=== PATIENT | male | born 1935 | race Caucasian/White ===

== ENCOUNTER 2016-08-13 14:22 | Inpatient (IN) | payer OTHER, MEDICARE ==
[~2016-08-13] VITALS: Ht 175.3 cm; Wt 91.6 kg
[~2016-08-13 14:22] MED LIST: ATOR40TA49 PO; COEN400C PO; HYDR-3129 PO; LISI-586 PO; METO25 PO; NAPR550 PO; PLAV75TA PO; PRIN10TA PO; TAB-TAB PO
[2016-08-13] MEDS ORDERED: SODIUM CHLORIDE 0.9% FLUSH 10 ML FLUSH IV FLUSH PRN ×3 (15:00→18:45)
[2016-08-13 15:08] VITALS: BP 166/76; PULSE 81; RESP 18; TEMP 98.6; O2SAT 96
--- NOTE | 2016-08-13 15:31 | PD ---
HPI Chief Complaint: Hip Injury Time Seen by Provider: 14:59 Travel History International Travel<30 days: No Contact w/Intl Traveler<30days: No Traveled to known affect area: No History of Present Illness HPI Patient is a 80-year-old male who presents to emergency room with complaints of left-sided hip pain. Patient reports that he was at home, reports that he tripped over his own feet and landed on his left hip. Patient reports that he was not able to ambulate after his fall today. Patient reports that he does have history of chronic back pain, take his dose of pain medications prior to coming to the emergency room. Patient reports that he only has pain with movement, reports that he is comfortable if he is still PFS Past Medical History Hx Anticoagulant Therapy: Yes Blood Disorders: No Cancer: Yes (TESTICULAR) Cardiovascular Problems: No Chemotherapy: No Cerebrovascular Accident: No Diabetes: No Diminished Hearing: No Endocrine: No Gastrointestinal Disorders: Yes (HX GERD) Genitourinary: No Hepatitis: No Hiatal Hernia: No Hypertension: Yes Immune Disorder: No Musculoskeletal: Yes (ARTHRITIS, CHRONIC BACK PAIN ) Neurologic: Yes (RIGHT DROP FOOT) Psychiatric: No Reproductive: No Respiratory: No Thyroid Disease: No Tetanus Vaccination: > 5 Years ?: Not Past Surgical History Abdominal Surgery: Yes (CHOLECYSTECTOMY, GALLBLADDER REMOVAL) AICD: No Cardiac Surgery: Yes (LEFT CAROTID STENT ) Cholecystectomy: Yes Coronary Artery Bypass Graft: Yes (cabg x 3) Coronary Stent: Yes Eye Surgery: Yes (KIMBERLI CATARACT SX) Genitourinary Surgery: Yes (ORCHIECTOMY) Joint Replacement: No Pacemaker: No Other Surgery: Yes (BACK, CHOLECYSTECTOMY, BL LASIX) Social History Alcohol Use: Yes (COUPLE BEERS A DAY) Tobacco Use: No (QUIT CIGARETTES 1988) Substance Use: Yes (MEDICAL MARIJUANA) Allergies-Medications (Allergen,Severity, Reaction): Coded Allergies: Codeine (Verified Allergy, Severe, Hives, 08/13/16) Penicillin (Verified Allergy, Severe, Hives, 08/13/16) Reported Meds & Prescriptions Reported Meds & Active Scripts Active Reported Calcium (Calcium Carbonate) 600 Mg Tab 600 Mg PO DAILY Centrum Adults (Multiple Vitamins W/ Minerals) 1 Tab 500 Mg PO DAILY Co-Q 10 [place]-3 Fish Oil (Coenzyme I57-Rkbp Oil-Vitamin) 1 Cap 400 Mg PO DAILY Diazepam 5 Mg Tab 5 Mg PO Q8HR PRN Morphine ER (Morphine Sulfate) 15 Mg Tab 15 Mg PO Q8HR Morphine ER (Morphine Sulfate) 15 Mg Tab 15 Mg PO Q8HR PRN Citalopram (Citalopram Hydrobromide) 10 Mg Tab 10 Mg PO DAILY Aspirin 325 Mg Tab 325 Mg PO DAILY Senna Laxative (Sennosides) 8.6 Mg Tab 1-2 Tab BID PRN Atorvastatin (Atorvastatin Calcium) 40 Mg Tab 40 Mg PO HS Review of Systems General / Constitutional: No: Fever Eyes: No: Visual changes HENT: No: Headaches Cardiovascular: No: Chest Pain or Discomfort Respiratory: No: Shortness of Breath Gastrointestinal: No: Abdominal Pain Genitourinary: No: Dysuria Musculoskeletal: Positive: Limited ROM (left hip), Pain (left hip) Skin: No Rash Neurologic: No: Weakness Psychiatric: No: Depression Endocrine: No: Polydipsia Hematologic/Lymphatic: No: Easy Bruising Physical Exam Narrative GENERAL: Mild distress SKIN: Focused skin assessment warm/dry. HEAD: Atraumatic. Normocephalic. EYES: Pupils equal and round. No scleral icterus. No injection or drainage. ENT: No nasal bleeding or discharge. Mucous membranes pink and moist. NECK: Trachea midline. No JVD. CARDIOVASCULAR: Regular rate and rhythm. No murmur appreciated. RESPIRATORY: No accessory muscle use. Clear to auscultation. Breath sounds equal bilaterally. GASTROINTESTINAL: Abdomen soft, non-tender, nondistended. Hepatic and splenic margins not palpable. MUSCULOSKELETAL: lle: patient with pain with rom to left hip - no open fx, no pain with rom to left knee/ankle, neurovascularly intact RLE: normal exam NEUROLOGICAL: Awake and alert. No obvious cranial nerve deficits. Motor grossly within normal limits. Normal speech. PSYCHIATRIC: Appropriate mood and affect; insight and judgment normal. Data Data Last Documented VS Vital Signs Date Time Temp Pulse Resp B/P Pulse Ox O2 Delivery O2 Flow Rate FiO2 08/13/16 15:08 98.6 81 18 166/76 96 Orders Basic Metabolic Panel (Bmp) (08/13/16 15:00) Complete Blood Count With Diff (08/13/16 15:00) Prothrombin Time / Inr (Pt) (08/13/16 15:00) Act Partial Throm Time (Ptt) (08/13/16 15:00) Iv Access Insert/Monitor (08/13/16 15:00) Sodium Chloride 0.9% Flush (Ns Flush) (08/13/16 15:00) Femur (Ap & Lat/2vws) (08/13/16 ) Hip, Uni(Ap&Lat) W Ap Pelvis (08/13/16 ) Admit Order (Ed Use Only) (08/13/16 17:16) Consult Orthopedic (08/13/16 ) Labs Laboratory Tests Test 08/13/16 15:19 White Blood Count 8.2 TH/MM3 Red Blood Count 3.69 MIL/MM3 Hemoglobin 11.0 GM/DL Hematocrit 34.2 % Mean Corpuscular Volume 92.6 FL Mean Corpuscular Hemoglobin 29.9 PG Mean Corpuscular Hemoglobin 32.3 % Concent Red Cell Distribution Width 15.2 % Platelet Count 116 TH/MM3 Mean Platelet Volume 9.1 FL Neutrophils (%) (Auto) 72.1 % Lymphocytes (%) (Auto) 14.8 % Monocytes (%) (Auto) 7.5 % Eosinophils (%) (Auto) 5.2 % Basophils (%) (Auto) 0.4 % Neutrophils # (Auto) 5.9 TH/MM3 Lymphocytes # (Auto) 1.2 TH/MM3 Monocytes # (Auto) 0.6 TH/MM3 Eosinophils # (Auto) 0.4 TH/MM3 Basophils # (Auto) 0.0 TH/MM3 CBC Comment DIFF FINAL Differential Comment Prothrombin Time 11.6 SEC Prothromb Time International 1.0 RATIO Ratio Activated Partial 27.9 SEC Thromboplast Time Sodium Level 139 MEQ/L Potassium Level 4.2 MEQ/L Chloride Level 105 MEQ/L Carbon Dioxide Level 28.6 MEQ/L Anion Gap 5 MEQ/L Blood Urea Nitrogen 21 MG/DL Creatinine 1.25 MG/DL Estimat Glomerular Filtration 56 ML/MIN Rate Random Glucose 101 MG/DL Calcium Level 8.8 MG/DL MDM Medical Decision Making Medical Screen Exam Complete: Yes Emergency Medical Condition: Yes Interpretation(s) Vital Signs Date Time Temp Pulse Resp B/P Pulse Ox O2 Delivery O2 Flow Rate FiO2 08/13/16 15:08 98.6 81 18 166/76 96 Differential Diagnosis Hip fracture, hip contusion Narrative Course 80-year-old male who presents to emergency room with complaints of left-sided hip pain after he fell from tripping on his feet today. Patient does take a baby ASA daily, denies trauma to head/neck. Denies loc. Patient denies cp/sob. No abdominal pain. Patient overall comfortable on exam. Plan to obtain basic labs and xrays of his left hip. CBC & BMP Diagram 08/13/16 15:19 Last Impressions Hip and Pelvis X-Ray 08/13/16 0000 Signed Impressions: Service Date/Time: August 15:49 - CONCLUSION: Impacted left femoral neck fracture. Cecil Rosa MD Femur X-Ray 08/13/16 0000 Signed Impressions: Service Date/Time: , August 13, 2016 15:50 - CONCLUSION: Impacted left femoral neck fracture. Cecil Rosa MD patient with impacted femoral neck fracture, call made to [facility] for admission, call made to Dr. Dougherty with ortho I did talk to patient about his hip fracture, patient's thought bedside, reports that he is on hospice and has been on hospice for the past 6 months for chronic pain. Patient as well as his like to talk to the orthopedic surgeon about options and is not ready to make a commitment for surgery. Plan to admit to medicine service with orthopedic consult case reviewed with dr. reina who accepts pt to service case reviewed with dr. rahman DIRECTOR OF BLOOD, will see patient in consult patient now agreeable to having surgery for hip replacement Diagnosis Primary Impression: Femur fracture, left Qualified Code: S72.042A - Closed displaced basicervical fracture of left femur, initial encounter Ruled Out: Carotid artery occlusion without infarction Admitting Information Admitting Physician Requests: Admit Nelida Verdugo DO Aug 13, 2016 15:31 Nelida Verdugo DO Aug 13, 2016 15:31
[2016-08-13] MEDS ORDERED: MORP1TAB24 PO (15:33)
[2016-08-13] MEDS ORDERED: ASPI325T PO (15:33)
[2016-08-13] MEDS ORDERED: CO-QCAP PO (15:33)
[2016-08-13] MEDS ORDERED: DIAZ5TAB PO (15:33)
[2016-08-13] MEDS ORDERED: ATOR40TA16 PO (15:33)
[2016-08-13] MEDS ORDERED: SENN8.6T25 (15:33)
[2016-08-13] MEDS ORDERED: CITA10TA4 PO (15:33)
[2016-08-13] MEDS ORDERED: CENTTAB8 PO (15:33)
[2016-08-13] MEDS ORDERED: CALC600T25 PO (15:33)
[2016-08-13 16:01] LABS: AUTOMATED NEUTROPHIL # 5.9 TH/MM3 (1.8-7.7); BASOPHIL % 0.4 % (0.0-2.0); EOSINOPHIL # 0.4 TH/MM3 (0-0.4); EOSINOPHIL % 5.2 % (0.0-4.0); HEMATOCRIT 34.2 % (39.0-51.0); HEMO FLAGS DIFF FINAL; LYMPH % 14.8 % (9.0-44.0); LYMPHOCYTE # 1.2 TH/MM3 (1.0-4.8); MEAN CELL VOLUME 92.6 FL (80.0-100.0); MEAN CORPUSCULAR HEMOGLOBIN 29.9 PG (27.0-34.0); MEAN CORPUSCULAR HGB CONC 32.3 % (32.0-36.0); MONO % 7.5 % (0.0-8.0); NEUT % 72.1 % (16.0-70.0); PLATELET COUNT 116 TH/MM3 (150-450); RED BLOOD COUNT 3.69 MIL/MM3 (4.50-5.90); RED CELL DISTRIBUTION WIDTH 15.2 % (11.6-17.2); WHITE BLOOD COUNT 8.2 TH/MM3 (4.0-11.0)
[2016-08-13 16:13] LABS: APTT (PATIENT) 27.9 SEC (24.3-30.1); PROTHROMBIN TIME - PATIENT 11.6 SEC (9.8-11.6)
[2016-08-13 16:29] LABS: BICARBONATE 28.6 MEQ/L (21.0-32.0); POTASSIUM 4.2 MEQ/L (3.5-5.1)
--- NOTE | 2016-08-13 16:42 | RADRPT ---
EXAM DATE/TIME: 08/13/2016 15:49 [facility] COMPARISON: No previous studies available for comparison. INDICATIONS : Left hip pain after falling today. MEDICAL HISTORY : None. SURGICAL HISTORY : None. ENCOUNTER: Initial ACUITY: 1 day PAIN SCORE: 7/10 LOCATION: Left hip. FINDINGS: 3 views left hip and pelvis. Impacted left femoral neck fracture. Hip joint alignment within normal l imits. Aortoiliac stent graft. CONCLUSION: Impacted left femoral neck fracture. Cecil Rosa MD on August 13, 2016 at 16:39 Board Certified Radiologist. This report was verified electronically.
--- NOTE | 2016-08-13 16:43 | RADRPT ---
EXAM DATE/TIME: 08/13/2016 15:50 [facility] COMPARISON: No previous studies available for comparison. INDICATIONS : Left leg pain after falling today. MEDICAL HISTORY : None. SURGICAL HISTORY : None. ENCOUNTER: Initial ACUITY: 1 day PAIN SCORE: 7/10 LOCATION: Left femur. FINDINGS: 5 views left femur. Impacted left femoral neck fracture. Hip joint alignment and knee joint alignment within normal limits. CONCLUSION: Impacted left femoral neck fracture. Cecil Rosa MD on August 13, 2016 at 16:41 Board Certified Radiologist. This report was verified electronically.
[2016-08-13] MEDS ORDERED: MORPHINE SULFATE 8 MG/ML INJ IV PUSH ONE (17:45)
[2016-08-13 18:27] VITALS: BP 140/61; PULSE 100; RESP 16; O2SAT 96
--- NOTE | 2016-08-13 18:43 | HHI.HP ---
HPI [facility] Primary Care Physician Unknown Admission Diagnosis left femoral neck surgery Diagnoses: (1) Femur fracture, left Chief Complaint: Left hip pain post fall Travel History International Travel<30 Days: No Contact w/Intl Traveler <30 Da: No Traveled to Known Affected Are: No History of Present Illness Mr. Tavarez is a 80-year-old male patient with a known history of CAD with CABG x 3 stents in 2016, left carotid stent placement, AAA, GERD and arthritis who is presently on hospice at home x 6 months who presented to the ED post fall with left hip pain. Patient seen and examined, significant other at bedside. He states that while using his rolling walker at home he turned the corner and tripped over his own feet. Patient denies any LOC, hitting his head, dizziness or headache. Denies any associated numbness, tingling, or decreased sensation to left lower extremity. Denies any recent fever, chills, cough, shortness of breath, chest pain, palpitations, abdominal pain, n/v, or dysuria. At this time patient has decided if surgery is indicated he wishes to proceed with surgery. Awaiting orthopedic consult and recommendations. Review of Systems Musculoskeletal: COMPLAINS OF: Joint pain (left hip) Except as stated in HPI: all other systems reviewed are Neg Past Family Social History Past Medical History On Hospice x 6 months Abdominal aortic aneurysm Right foot drop Testicular cancer with orchectomy in 2012. Coronary artery disease post CABG x 3 stents in 2016. Arthritis GERD Chronic hip pain Past Surgical History CABG x 3 stents in 2016 off blood thinner x 4 months. Takes aspirin daily. Orchiectomy 2013 Bilateral cataract surgery Left carotid stent Cholecystectomy Back surgery 1987 Reported Medications Reported Calcium (Calcium Carbonate) 600 Mg Tab 600 Mg PO DAILY Centrum Adults (Multiple Vitamins W/ Minerals) 1 Tab 500 Mg PO DAILY Co-Q 10 [place]-3 Fish Oil (Coenzyme D64-[place] Oil-Vitamin) 1 Cap 400 Mg PO DAILY Diazepam 5 Mg Tab 5 Mg PO Q8HR PRN Morphine ER (Morphine Sulfate) 15 Mg Tab 15 Mg PO Q8HR Morphine ER (Morphine Sulfate) 15 Mg Tab 15 Mg PO Q8HR PRN Citalopram (Citalopram Hydrobromide) 10 Mg Tab 10 Mg PO DAILY Aspirin 325 Mg Tab 325 Mg PO DAILY Senna Laxative (Sennosides) 8.6 Mg Tab 1-2 Tab BID PRN Atorvastatin (Atorvastatin Calcium) 40 Mg Tab 40 Mg PO HS Allergies: Coded Allergies: Codeine (Verified Allergy, Severe, Hives, 08/13/16) Penicillin (Verified Allergy, Severe, Hives, 08/13/16) Active Ordered Medications Current Medications Medications (Trade) Dose Ordered Sig/Paola Route Start Time Stop Time Status Last Admin (NS Flush) 2 ml UNSCH PRN IV FLUSH 08/13/16 15:00 (NS Flush) 2 ml UNSCH PRN IV FLUSH 08/13/16 17:30 (NS Flush) 2 ml BID IV FLUSH 08/13/16 21:00 Family History Denies any significant family medical history. Social History Patient lives at home on Hospice x 6 months now with significant other. Does admit to tobacco history since he was 13 years old, smoked 1 ppd until 1987. Does admit to drinking 2 beers per day. Does admit to occasional smoking marijuana for medical purposes. Physical Exam Vital Signs Vital Signs Date Time Temp Pulse Resp B/P Pulse Ox O2 Delivery O2 Flow Rate FiO2 08/13/16 15:08 98.6 81 18 166/76 96 Physical Exam GENERAL: Well-nourished, well-developed patient, in no apparent distress lying comfortably in bed. SKIN: No rashes, ecchymoses or lesions. Warm and dry. HEENT: Atraumatic. Normocephalic. Pupils equal round and reactive. Extraocular motions intact. No scleral icterus. No injection or drainage. Nose without bleeding. Airway patent. NECK: Trachea midline. Supple. CARDIOVASCULAR: Regular rate and rhythm. Holosystolic murmur noted. RESPIRATORY: Clear to auscultation. Breath sounds equal bilaterally. No wheezes , rales, or rhonchi. GASTROINTESTINAL: Abdomen soft, non-tender, nondistended. No guarding. MUSCULOSKELETAL: Extremities without clubbing, cyanosis, or edema. No joint tenderness, effusion, or edema noted. Pain with ROM to left lower extremity. NEUROLOGICAL: Awake and alert. Cranial nerves II through XII intact. Motor and sensory grossly within normal limits. Five out of 5 muscle strength in all muscle groups. Normal speech. Denies any numbness or tingling. Sensation equal in bilateral lower extremities, intact. Laboratory Laboratory Tests Test 08/13/16 15:19 White Blood Count 8.2 Red Blood Count 3.69 Hemoglobin 11.0 Hematocrit 34.2 Mean Corpuscular Volume 92.6 Mean Corpuscular Hemoglobin 29.9 Mean Corpuscular Hemoglobin 32.3 Concent Red Cell Distribution Width 15.2 Platelet Count 116 Mean Platelet Volume 9.1 Neutrophils (%) (Auto) 72.1 Lymphocytes (%) (Auto) 14.8 Monocytes (%) (Auto) 7.5 Eosinophils (%) (Auto) 5.2 Basophils (%) (Auto) 0.4 Neutrophils # (Auto) 5.9 Lymphocytes # (Auto) 1.2 Monocytes # (Auto) 0.6 Eosinophils # (Auto) 0.4 Basophils # (Auto) 0.0 CBC Comment DIFF FINAL Differential Comment Prothrombin Time 11.6 Prothromb Time International 1.0 Ratio Activated Partial 27.9 Thromboplast Time Sodium Level 139 Potassium Level 4.2 Chloride Level 105 Carbon Dioxide Level 28.6 Anion Gap 5 Blood Urea Nitrogen 21 Creatinine 1.25 Estimat Glomerular Filtration 56 Rate Random Glucose 101 Calcium Level 8.8 Result Diagram: 08/13/16 1519 08/13/16 1519 Imaging Last Impressions Hip and Pelvis X-Ray 08/13/16 0000 Signed Impressions: Service Date/Time: August 15:49 - CONCLUSION: Impacted left femoral neck fracture. Cecil Rosa MD Femur X-Ray 08/13/16 0000 Signed Impressions: Service Date/Time: August 15:50 - CONCLUSION: Impacted left femoral neck fracture. Cecil Rosa MD Assessment and Plan Assessment and Plan Mr. Tavarez is a 80-year-old male patient with a known history of CAD with CABG x 3 stents in 2016, left carotid stent placement, AAA, GERD and arthritis who is presently on hospice at home x 6 months presented to the ED post fall with left hip pain. Impacted left femoral neck fracture, acute - Hip/pelvis, and femur x-ray reviewed showing impacted left femoral neck fracture. - Orthopedic surgeons consulted, appreciate input. - Patient is Hospice. If indicated, patient has decided to go ahead with surgery. - Keep NPO until seen by orthopedic surgeon. - Control pain. Morphine 4 mg IV Q3hr PRN breakthrough pain. [place] 10/325 mg PO PRN per pain scale. Hypertension suspect secondary to left hip pain - Monitor. Will add PRN clonidine 0.1 mg PO Q6hr PRN systolic > 180. Coronary artery disease, chronic - On daily aspirin 325 mg PO daily. Last taken this am. Hold daily aspirin for now with possibly surgery in am. - Will obtain EKG. Follow. Anemia of chronic disease: Hemoglobin 11.0/Hematocrit 34.2 on presentation. Recheck CBC in am. Other chronic medical problems include arthritis and GERD and are stable at this time. Resume home medications as indicated. DVT Prophylaxis: SCDs. D/w patient, significant other, and Dr. Neal. Attestation Patient seen and examined with NATE Borrero. The exam, history, and the medical decision-making described in the above note were completed with the assistance of the dictating practitioner. I attest that I had a [id number] encounter with the patient on the same day, and personally performed all of the history, exam, or medical decision making. Discussed case with her thoroughly after seeing the patient, reviewed and agreed with the plan. Please see addendum in History, Physical examination. See below for any errata/additional input: This is a 80 year-old male with history of coronary artery disease, GERD, AAA, on hospice presented to the hospital with left hip pain after a fall. Patient sustained a left hip fracture. Presently, pain is controlled, no nausea, vomiting, dizziness or lightheadedness. No chest pain or shortness of breath. Not in distress Regular rate and rhythm, holosystolic musical murmur. /. Clear breath sounds Left lower extremity range of motion decreased with tenderness to palpation of the left hip. Alert awake and oriented 3 -Check EKG, a normal limits, cleared for surgery. Orthopedics consulted, for surgery tomorrow, nothing by mouth after midnight. Continue home medications, recheck CBC and BMP in the morning. Pain medications both oral and intravenous , bowel regimen. Clonidine as needed for hypertension, most likely secondary to pain. Physician Certification 2 Midnight Certification Type: Admission for Inpatient Services Order for Inpatient Services The services are ordered in accordance with Medicare regulations or non- Medicare payer requirements, as applicable. In the case of services not specified as inpatient-only, they are appropriately provided as inpatient services in accordance with the 2-midnight benchmark. Estimated LOS (days): 2 days is the estimated time the patient will need to remain in the hospital, assuming treatment plan goals are met and no additional complications. Post-Hospital Plan: Hospice Problem Qualifiers (1) Femur fracture, left: Qualified Code: S72.042A - Closed displaced basicervical fracture of left femur , initial encounter Tabby Duval Aug 13, 2016 18:43 Darline Neal MD Aug 13, 2016 18:52
[2016-08-13] MEDS ORDERED: ACETAMINOPHEN 325 MG TAB PO PRN (18:45)
[2016-08-13] MEDS ORDERED: NALOXONE HCL 0.4 MG/ML AMP IV PRN ×2 (18:45)
[2016-08-13] MEDS ORDERED: MORPHINE SULFATE 4 MG/ML INJ IV PRN (18:45)
[2016-08-13] MEDS ORDERED: ACETAMINOPHEN/HYDROcodone 325 MG/5 MG TAB PO PRN (18:45)
[2016-08-13] MEDS ORDERED: cloNIDine HCL 0.1 MG TAB PO PRN (18:45)
[2016-08-13] MEDS ORDERED: ONDANSETRON HCL 4 MG/2 ML VIAL IVP PRN (18:45)
[2016-08-13 19:58] VITALS: BP 121/69; PULSE 102; RESP 18; TEMP 97.3; O2SAT 92
[2016-08-13 21:00] VITALS: PULSE 108
[2016-08-13] MEDS: SODIUM CHLORIDE 0.9% FLUSH 10 ML FLUSH IV FLUSH SCH ×2 (21:00→21:24)
[2016-08-13 23:30] VITALS: PULSE 102
[2016-08-13 23:51] VITALS: BP 132/70; PULSE 107; RESP 17; TEMP 98; O2SAT 92
[2016-08-14] VITALS (7 sets, daily range): BP systolic 101–142; BP diastolic 61–75; PULSE 74–93; RESP 16–18; TEMP 95.8–98.4; O2SAT 93–98
[2016-08-14] MEDS: ACETAMINOPHEN/HYDROcodone 325 MG/10 MG TAB PO PRN ×3 (03:05→07:56)
[2016-08-14] MEDS ORDERED: SODIUM CHLORID 0.9% 500 ML IV PRN (04:15)
[2016-08-14] MEDS ORDERED: CHLORHEXIDINE GLUCONATE 2 % 1 PACK (2 CLOTHS) TOPICAL PRN (04:15)
[2016-08-14] MEDS ORDERED: POVIDONE IODINE 5% (ANTISEPSIS KIT) 4 APPLICATIONS EACH NARE PRN (04:15)
[2016-08-14] MEDS ORDERED: LACTATED RINGER'S 1000 ML IV PRN (04:15)
[2016-08-14 07:08] LABS: AUTOMATED NEUTROPHIL # 5.9 TH/MM3 (1.8-7.7); BASOPHIL % 0.4 % (0.0-2.0); EOSINOPHIL # 0.5 TH/MM3 (0-0.4); EOSINOPHIL % 5.8 % (0.0-4.0); HEMATOCRIT 35.6 % (39.0-51.0); HEMO FLAGS DIFF FINAL; LYMPH % 15.5 % (9.0-44.0); LYMPHOCYTE # 1.3 TH/MM3 (1.0-4.8); MEAN CELL VOLUME 91.1 FL (80.0-100.0); MEAN CORPUSCULAR HEMOGLOBIN 31.2 PG (27.0-34.0); MEAN CORPUSCULAR HGB CONC 34.3 % (32.0-36.0); MONO % 8.4 % (0.0-8.0); NEUT % 69.9 % (16.0-70.0); PLATELET COUNT 105 TH/MM3 (150-450); RED BLOOD COUNT 3.91 MIL/MM3 (4.50-5.90); RED CELL DISTRIBUTION WIDTH 15.1 % (11.6-17.2); WHITE BLOOD COUNT 8.5 TH/MM3 (4.0-11.0)
--- NOTE | 2016-08-14 07:21 | PD.ORT.PN ---
Subjective Subjective Remarks s/p fall at home left hip pain. no other complaints. Objective Vitals Vital Signs Date Time Temp Pulse Resp B/P Pulse Ox O2 Delivery O2 Flow Rate FiO2 08/14/16 03:27 96.4 93 18 142/75 93 08/13/16 23:51 98.0 107 17 132/70 92 08/13/16 23:30 102 08/13/16 21:00 108 08/13/16 19:58 97.3 102 18 121/69 92 08/13/16 18:27 100 16 140/61 96 Room Air 08/13/16 15:08 98.6 81 18 166/76 96 I/O 08/13/16 08/13/16 08/13/16 08/14/16 08/14/16 08/14/16 07:00 15:00 23:00 07:00 15:00 23:00 Intake Total 120 ml 0 ml Balance 120 ml 0 ml Intake Oral 120 ml 0 ml # Voids 1 2 # Bowel Movements 0 0 Result Diagram: 08/14/16 0627 08/13/16 1519 Other Results Laboratory Tests Test 08/13/16 15:19 Prothrombin Time 11.6 SEC (9.8-11.6) Prothromb Time International 1.0 RATIO Ratio Objective Remarks LLE: pain with motion of hip. nvi. neg flavia. Assessment & Plan Assessment and Plan 1) Left Femoral Neck Fx -NPO -consents -surgery today -will likely need rehab placement after surgery -plan for WBAT with posterior hip precautions -knee brace while in bed -begin daily dressing changes POD 2 and DC drain -DVT prophylaxis with lovenox and transition to Xarelto at discharge -follow up with Monica or JUNG in 2 weeks Toni Mercer Aug 14, 2016 07:21
[2016-08-14] MEDS ORDERED: WALKER/ADULT/FO1 MIS (07:37)
[2016-08-14] MEDS ORDERED: XARE10TA PO (07:37)
[2016-08-14] MEDS: SODIUM CHLORIDE 0.9% FLUSH 10 ML FLUSH IV FLUSH SCH ×2 (09:00)
[2016-08-14] MEDS ORDERED: SODIUM CHLOR 0.9% 250 ML INJ 250 ML ONE (09:15)
[2016-08-14] MEDS ORDERED: GENTAMICIN SULFATE 80 MG/2 ML VIAL ONE ×2 (09:15)
[2016-08-14] MEDS ORDERED: VANCOMYCIN HCL 1000 MG VIAL ONE (09:16)
[2016-08-14] MEDS ORDERED: PROPOFOL 200 MG/20 ML AMP IV ONE (09:21)
[2016-08-14] MEDS ORDERED: PHENYLEPH/NS 1000 MCG/10 ML SYR IV ONE (09:21)
[2016-08-14] MEDS ORDERED: ONDANSETRON HCL 4 MG/2 ML VIAL IV PUSH ONE (09:22)
[2016-08-14] MEDS ORDERED: LACTATED RINGER'S 1000 ML INJ 1,000 ML IV ONE (09:22)
[2016-08-14] MEDS ORDERED: SODIUM CHLORIDE 0.9% IV SCH ×2 (09:30→10:00)
[2016-08-14] MEDS ORDERED: TRANEXAMIC ACID IV SCH ×2 (09:30→10:00)
--- NOTE | 2016-08-14 09:51 | HHI.PR ---
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 Seen after surgery. In bed, sleepy. Says he lives at home with his but agrees to go to SNF as he feels he is weak. No n/v/d/c. Says he is tired. Objective Vitals Vital Signs Date Time Temp Pulse Resp B/P Pulse Ox O2 Delivery O2 Flow Rate FiO2 08/14/16 08:06 98.1 84 18 115/61 93 08/14/16 03:27 96.4 93 18 142/75 93 08/13/16 23:51 98.0 107 17 132/70 92 08/13/16 23:30 102 08/13/16 21:00 108 08/13/16 19:58 97.3 102 18 121/69 92 08/13/16 18:27 100 16 140/61 96 Room Air 08/13/16 15:08 98.6 81 18 166/76 96 I/O 08/13/16 08/13/16 08/13/16 08/14/16 08/14/16 08/14/16 07:00 15:00 23:00 07:00 15:00 23:00 Intake Total 120 ml 0 ml Balance 120 ml 0 ml Intake Oral 120 ml 0 ml # Voids 1 2 # Bowel Movements 0 0 Result Diagram: 08/14/16 0627 08/13/16 1519 Imaging Last Impressions Hip and Pelvis X-Ray 08/13/16 0000 Signed Impressions: Service Date/Time: August 15:49 - CONCLUSION: Impacted left femoral neck fracture. Cecil Rosa MD Femur X-Ray 08/13/16 0000 Signed Impressions: Service Date/Time: August 15:50 - CONCLUSION: Impacted left femoral neck fracture. Cecil Rosa MD Objective Remarks GENERAL: Pleasant elderly male, well-nourished, well-developed patient, in no apparent distress. SKIN: No rashes, ecchymoses or lesions. Warm and dry. HEENT: Atraumatic. Normocephalic. Pupils equal round and reactive. Extraocular motions intact. No scleral icterus. No injection or drainage. Nose without bleeding. Airway patent. NECK: Trachea midline. Supple. CARDIOVASCULAR: Regular rate and rhythm. Holosystolic murmur noted. RESPIRATORY: Clear to auscultation. Breath sounds equal bilaterally. No wheezes , rales, or rhonchi. GASTROINTESTINAL: Abdomen soft, non-tender, nondistended. No guarding. MUSCULOSKELETAL: Left hip dressing c/d/i. Extremities without clubbing, cyanosis , or edema. No joint tenderness, effusion, or edema noted. Pain with ROM to left lower extremity. NEUROLOGICAL: Awake and alert. Cranial nerves grossly intact. Motor and sensory grossly within normal limits. Normal speech. Procedures S/P Left hip bipolar nelly-plasty 08/14/[address] Anderson A/P Problem List: (1) Femur fracture, left ICD Code: S72.92XA Status: Acute Assessment and Plan Mr. Tavarez is a 80-year-old male patient with a known history of CAD with CABG x 3 stents in 2016, left carotid stent placement, AAA, GERD and arthritis who is presently on hospice at home x 6 months presented to the ED post fall with left hip pain. Impacted left femoral neck fracture, acute Hip/pelvis, and femur x-ray reviewed showing impacted left femoral neck fracture. Orthopedic surgeons consulted. S/P Left hip bipolar nelly-plasty 08/14/[address] Anderson Control pain. Morphine 4 mg IV Q3hr PRN breakthrough pain. [place] 10/325 mg PO PRN per pain scale. Hypertension suspect secondary to left hip pain Monitor. PRN clonidine 0.1 mg PO Q6hr PRN systolic > 180. Coronary artery disease, chronic On daily aspirin 325 mg PO daily. Last taken this am. Hold daily aspirin for surgery and restart when ok by surgeon Anemia of chronic disease: Hemoglobin 11.0/Hematocrit 34.2 on presentation. Recheck CBC in am. Other chronic medical problems include arthritis and GERD and are stable at this time. Resume home medications as indicated. DVT Prophylaxis: SCDs. Discussed with the patient, nurse Problem Qualifiers (1) Femur fracture, left: Qualified Code: S72.042A - Closed displaced basicervical fracture of left femur , initial encounter Karis Smith MD Aug 14, 2016 09:51 Karis Smith MD Aug 14, 2016 09:51
[2016-08-14] MEDS ORDERED: FAMOTIDINE 20 MG/2 ML VIAL ONE (09:55)
[2016-08-14] MEDS ORDERED: DEXAMETHASONE SOD PHOS 4 MG/ML VIAL ONE (09:56)
[2016-08-14] MEDS ORDERED: CLINDAMYCIN PHOS 600 MG/4 ML VIAL ONE (10:40)
[2016-08-14] MEDS ORDERED: HYDR-3288 PO (11:25)
--- NOTE | 2016-08-14 11:27 | PD.OP ---
cc: Neri Montanez MD Operative Report Date of Surgery: Aug 14, 2016 Preoperative Diagnosis: Displaced left femoral neck fracture Postoperative Diagnosis: Same Procedure: Left hip bipolar nelly-plasty Anesthesia: Gen. Surgeon: Neri Montanez Pneumatic Tester Mechanic(s): JULIET Card PA-C The surgical procedure was assisted by my physician clinical physician assistant. My P.A. presence was necessary throughout this case for the manipulation and positioning of the surgical extremity. My P.A. was assisting me throughout the duration of this procedure. The skill set of a physician clinical physician assistant was medically necessary to complete this procedure. During the surgical case the emissions repair technician was working at the back table and the physician clinical physician assistant was directly assisting me. Operation and Findings: PLAN OF ACTIVITY Weight bear as tolerated. IMPLANTS USED DePuy Corail size 14 stem with size [52] bipolar head and [1.5] neck. DRAIN: 7 mm Lloyd-Leger drain DETAILS OF PROCEDURE This patient was brought into the operating room and placed on the OR table. The patient was given anesthesia. The patient received IV antibiotics. The patient was then placed in lateral decubitus position. The hip and leg were prepped with alcohol, followed by Hibiclens and draped in a usual sterile fashion. Clean air was used for this procedure. Time out procedure was performed. The procedure began with a 5 inch incision over the posterolateral hip. The subcutaneous tissue was dissected with the Bovie. The iliotibial band were split in line with fibers. The Charnley retractor was placed. The piriformis and external rotators were released from the femur and tagged with a #1 Vicryl suture. The capsule is now incised and tagged with #1 Vicryl. The femoral neck fracture was now visualized. A corkscrew was now used to remove the femoral head. The femoral head was sized and measured. Soft tissue was now protected. The hip skid was placed underneath the femoral neck. An oscillating saw was used to make a femoral neck cut. At this point attention was turned to preparation of the proximal femur. A box osteotome was used to remove the lateral cortex of the femoral neck. The T- handle reamer was used to open the femoral canal. Next, the canal was broached. A lateralizing reamer was used to help lateralize the prosthesis. At this point a trial head and neck were placed. The hip was reduced. The patient was found to have excellent stability with good range of motion. Trial components were removed. Soft tissue and bone were thoroughly irrigated. A Corail stem was now opened. The stem was now impacted into the proximal femur. Care was taken to keep appropriate anteversion. The head and neck were now impacted onto the stem. The hip was again reduced. The hip was found to have good range of motion and good stability. Leg lengths were clinically equal. The wound was thoroughly irrigated. The capsule, piriformis and iliotibial band were closed with #1 Vicryl. Subcutaneous tissue was closed with 3-0 Vicryl. The skin was closed with orquidea. A sterile dressing was applied with Primapore. The patient was placed into a knee immobilizer. The patient was awakened and transferred to the recovery room in stable condition. Needle and sponge counts were correct. Neri Montanez MD Aug 14, 2016 11:27
[2016-08-14] MEDS ORDERED: ceFAZolin 2 GM PREMIX 50 ML IV SCH (11:30)
[2016-08-14] MEDS ORDERED: MORPHINE SULFATE 4 MG/ML INJ IV PUSH PRN ×2 (11:30→12:15)
[2016-08-14] MEDS ORDERED: ERGOCALCIFEROL (VIT D2) 50,000 UNIT CAP PO ONE ×2 (11:30→12:15)
[2016-08-14] MEDS ORDERED: SODIUM CHLORIDE 0.9% FLUSH 5 ML FLUSH IVF PRN ×2 (11:30→12:15)
[2016-08-14] MEDS ORDERED: Post-op Orders (for Pharmacy) MISC XX ONE ×2 (11:30→12:15)
[2016-08-14] MEDS ORDERED: DO NOT ADM ANY ANTICOAGULANT DRUGS PRN (12:00)
--- NOTE | 2016-08-14 12:06 | PD.OP ---
cc: Neri Montanez MD Operative Report Date of Surgery: Aug 14, 2016 Preoperative Diagnosis: Right femoral neck fracture Postoperative Diagnosis: Procedure: Right hip pinning Anesthesia: Gen. Surgeon: Neri Montanez Sports Administrator(s): JULIET Dowd PA-C The surgical procedure was assisted by my physician medical technician assistant. My P.A. presence was necessary throughout this case for the manipulation and positioning of the surgical extremity. My P.A. was assisting me throughout the duration of this procedure. The skill set of a physician medical technician assistant was medically necessary to complete this procedure. During the surgical case the surgical garment assembly supervisor was working at the back table and the physician medical technician assistant was directly assisting me. Operation and Findings: Plan of activity: TTWB Patient was seen and evaluated preoperatively. The patient has significant hip pain from impacted femoral neck fracture. The risk and benefits of surgery were discussed in depth with the patient to include bleeding infection nonunion malunion, avascular necrosis and need for hip replacement painful hardware as well as medical competitions including but not stroke heart attack and . Informed consent was obtained. Operative site was marked. Patient was brought to the operating room and placed on fracture table. IV sedation was administered by anesthesiologist. Timeout procedure was performed. Hip and leg were prepped with alcohol followed by Hibiclens and draped in the usual sterile fashion. IV antibiotics were given prior to incision. Procedure began with evaluation of fracture under fluoroscopy. Leg was gently manipulated to improve alignment. Excellent reduction was achieved. Fluoroscopy was used to confirm reduction. A three cm incision was along the lateral aspect of the proximal femur . Subcutaneous tissue was dissected bluntly. Three guidepins were placed through the lateral cortex of the proximal femur. Guide pins were placed in an inverted triangle position. Guide pins were advanced across the fracture site into the femoral head. Fluoroscopy confirmed appropriate guidepin placement. The screw lengths were measured. A cannulated drill was placed over each of the guide pins. Appropriate length Synthes 7.3 cannulated screws were placed over the guidepins. Good compression was applied across the fracture. Final fluoroscopy revealed well aligned fracture with well-placed hardware. Incision was closed with 3-0 Vicryl and orquidea. Sterile dressings were applied. Patient was awakened and transferred to recovery room. Neri Montanez MD Aug 14, 2016 12:06
[2016-08-14] MEDS ORDERED: ACETAMINOPHEN/HYDROcodone 325 MG/5 MG TAB PO PRN (12:15)
--- NOTE | 2016-08-14 12:25 | EKG ---
Date Performed: 08/13/2016 Time Performed: 19:26:32 PTAGE: 80 years EKG: ATRIAL FLUTTER/TACHYCARDIA WITH RAPID VENTRICULAR RESPONSE LEFT ANTERIOR FASCICULAR BLOCK S EPTAL MYOCARDIAL INFARCTION , OF INDETERMINATE AGE POSSIBLE LATERAL MYOCARDIAL INFARCTION , OF INDETE RMINATE AGE ABNORMAL ECG Compared to prior tracing no significant change PREVIOUS TRACING : 08/13/2016 DOCTOR: John Trejo Interpretating Date/Time 08/14/2016 12:22:46
--- NOTE | 2016-08-14 12:26 | RADRPT ---
EXAM DATE/TIME: 08/14/2016 11:57 [facility] COMPARISON: HIP LEFT (AP&LAT 2/3VWS) W AP PELVIS, August 13, 2016, 15:49. INDICATIONS : Post op, left hip replacement. MEDICAL HISTORY : None. SURGICAL HISTORY : None. ENCOUNTER: Initial ACUITY: 1 day PAIN SCORE: Non-responsive. LOCATION: Left hip FINDINGS: There is a bipolar hip prosthesis seen on the left. The prosthetic components appear well-placed. The re is a drain over this region. Skin orquidea are seen. There is an aortic stent graft in place. CONCLUSION: Successful placement of a bipolar hip prosthesis on the left. Oscar Castillo MD on August 14, 2016 at 12:23 Board Certified Radiologist. This report was verified electronically.
--- NOTE | 2016-08-14 12:29 | EKG ---
Date Performed: 08/13/2016 Time Performed: 18:51:17 PTAGE: 80 years EKG: ATRIAL FLUTTER/TACHYCARDIA WITH RAPID VENTRICULAR RESPONSE PATTERN CONSISTENT WITH PULMONAR Y DISEASE LEFT ANTERIOR FASCICULAR BLOCK SEPTAL MYOCARDIAL INFARCTION ABNORMAL ECG Rate has increased since prior tracing PREVIOUS TRACING : 12/15/2014 16.10 DOCTOR: John Trejo Interpretating Date/Time 08/14/2016 12:27:43
--- NOTE | 2016-08-14 14:47 | MB ---
cc: MARLENY NEAL MD, TODD DATE OF CONSULTATION: 08/14/2016 REASON FOR CONSULTATION Left femoral neck fracture. CONSULTING PHYSICIAN Dr. Neal HISTORY OF PRESENT ILLNESS Pepe is a 80-year-old male who has multiple medical problems including coronary artery disease, abdominal aortic aneurysm reflux and arthritis. He has been on hospice for the past six months. He had a fall. He complains of left hip pain. He landed on his left side. Pain is worse with movement and is improved with rest. He was unable to stand or ambulate after his fall. He presented to the emergency room where x-rays revealed a displaced left femoral neck fracture. He is currently awake and alert on the orthopedic floor. He answers questions appropriately. His only complaint is his left hip. PAST MEDICAL HISTORY ILLNESSES 1. Abdominal aortic aneurysm. 2. Foot drop. 3. Testicular cancer. 4. Coronary artery disease. 5. Arthritis. 6. Reflux. SURGERIES 1. Coronary artery bypass. 2. Orchiectomy. 3. Bilateral cataract surgery. 4. Carotid stent. 5. Cholecystectomy. MEDICATIONS 1. Calcium. 2. Centrum. 3. CoQ10. 4. Diazepam. 5. Morphine. 6. Citalopram. 7. Aspirin. 8. Senna. 9. Atorvastatin. ALLERGIES 1. PENICILLIN. 2. CODEINE. FAMILY HISTORY Noncontributory. SOCIAL HISTORY The patient lives at home. He is under Hospice care. He smoked a pack a day up to 1987. He drinks approximately two beers a day. REVIEW OF SYSTEMS The patient denies headache, visual changes, neck pain, chest pain, shortness of breath, abdominal pain, nausea, vomiting or recent weight loss. He complains of left hip pain. Pain is worse with movement. PHYSICAL EXAMINATION GENERAL: The patient is a well-developed, well-nourished 80-year-old male who is no acute distress. He is awake and alert. He appears well-developed and well-nourished. VITAL SIGNS: Temperature 98.1, pulse 84, respirations 18, blood pressure 115/61. O2 sat is 92% on room air. HEAD: The patient is normocephalic. Pupils are equal. NECK: Soft, nontender. Trachea is midline. ABDOMEN: Soft, nontender, nondistended. EXTREMITIES: Examination of bilateral upper extremities reveals no obvious pain or deformity with shoulder, elbow or wrist motion. He has good capillary refill in his fingers. Radial pulses are palpable. Sensation is intact to both hands. Examination of right leg reveals no pain with hip, knee or ankle motion. Skin is intact. Dorsalis pedis pulse is palpable. Sensation is intact to the right foot. Examination of left leg reveals mild tenderness to palpation around the hip. He has pain with any hip motion. He has no tenderness around his knee, tibia or ankle. Calf and thigh compartments are soft. Dorsalis pedis pulse is palpable. Sensation is intact. X-RAYS X-rays of the left hip were reviewed. X-rays reveal a displaced left femoral neck fracture. IMPRESSION 1. Osteoporosis. 2. Displaced left femoral neck fracture. 3. Coronary artery disease. 4. Abdominal aortic aneurysm. PLAN The treatment options were discussed with the patient. At this point I would recommend left hip hemiarthroplasty. The risks of surgery include bleeding, infection, injuries to arteries, nerves and blood vessels, nonunion, malunion, painful hardware, hip dislocation, leg length discrepancy, as well as medical complications including blood clot, stroke, heart attack and . All questions were answered. I will plan on surgery today. A mid-level provider in my office, nurse practitioner or PA, may see this patient on a follow-up basis and continue to implement the objective of this plan including: Starting or adjusting medications, injections of muscle, tendon, bursa or joints, cast application, orthotic or brace application, physical therapy, further radiographic studies including x-ray, MRI, CT, ultrasounds or bone scan, vascular studies, neurologic studies, or other specialist consultations, and proceeding with surgical management as appropriate. MD SIMONA Freitas/TERE /11:31 AM 2:30 PM
[2016-08-14] MEDS: CLINDAMYCIN 600 MG/NS 100 ML IV SCH ×2 (18:18)
[2016-08-14] MEDS: SODIUM CHLORIDE 0.9% FLUSH 5 ML FLUSH IVF SCH (20:38)
[2016-08-14] MEDS ORDERED: SODIUM CHLORIDE 0.9% FLUSH 5 ML FLUSH IVF SCH (21:00)
[2016-08-14] MEDS: ACETAMINOPHEN/HYDROcodone 325 MG/7.5 MG TAB PO PRN (23:13)
[2016-08-15] VITALS (8 sets, daily range): BP systolic 98–139; BP diastolic 60–79; PULSE 86–112; RESP 17–20; TEMP 96–97.5; O2SAT 95–98
[2016-08-15] MEDS: CLINDAMYCIN 600 MG/NS 100 ML IV SCH ×4 (02:29→09:08)
[2016-08-15 06:01] LABS: HEMATOCRIT 30.5 % (39.0-51.0); REVIEW FLAG FINAL
--- NOTE | 2016-08-15 07:48 | PD.ORT.PN ---
Subjective Subjective Remarks pt resting awakes and complains of pain Objective Vitals Vital Signs Date Time Temp Pulse Resp B/P Pulse Ox O2 Delivery O2 Flow Rate FiO2 08/15/16 04:00 96.8 86 17 98/70 95 08/14/16 23:52 96.2 78 16 110/67 98 08/14/16 19:00 95.8 82 17 125/61 97 08/14/16 18:29 97 Nasal Cannula 1.00 08/14/16 16:00 98.4 74 16 101/63 97 08/14/16 14:12 94 Nasal Cannula 1.00 08/14/16 12:45 97.8 71 20 125/60 95 Nasal Cannula 2 08/14/16 12:30 70 20 121/59 97 Nasal Cannula 2 08/14/16 12:15 70 20 122/59 98 Nasal Cannula 2 08/14/16 12:00 71 20 102/56 94 Nasal Cannula 2 08/14/16 11:43 98.1 71 20 99/51 94 Nasal Cannula 2 08/14/16 08:06 98.1 84 18 115/61 93 I/O 08/14/16 08/14/16 08/14/16 08/15/16 08/15/16 08/15/16 07:00 15:00 23:00 07:00 15:00 23:00 Intake Total 0 ml 1440 ml 480 ml Output Total 990 ml 290 ml 305 ml Balance 0 ml 450 ml 190 ml -305 ml Intake Oral 0 ml 240 ml 480 ml Other 1200 ml Output Urine Total 840 ml 250 ml 300 ml Drainage Total 0 ml 40 ml 5 ml Estimated Blood Loss 150 ml # Voids 2 # Bowel Movements 0 0 0 Result Diagram: 08/15/16 0544 08/13/16 1519 Imaging Last 24 hours Impressions Hip and Pelvis X-Ray 08/14/16 1120 Signed Impressions: Service Date/Time: Sunday, August 14, 2016 11:57 - CONCLUSION: Successful placement of a bipolar hip prosthesis on the left. Oscar Castillo MD Objective Remarks seen by Dr. Balbir Encarnacion LLE: pain with motion of hip. nvi. neg flavia. Assessment & Plan Assessment and Plan 1) Left Femoral Neck Fx 2) POD #1 s/p bipolar 3) WBAT with posterior hip precautions 4) knee brace while in bed 5) begin daily dressing changes POD 2 and DC drain 6) DVT prophylaxis with lovenox and transition to Xarelto at discharge 7) follow up with Monica or JUNG in 2 weeks Leana Carter Aug 15, 2016 07:48
[2016-08-15] MEDS: SODIUM CHLORIDE 0.9% FLUSH 5 ML FLUSH IVF SCH ×2 (09:00→19:34)
[2016-08-15] MEDS ORDERED: CHOLECALCIFEROL (VIT D3) 5000 UNIT CAP PO SCH (09:00)
[2016-08-15] MEDS: ENOXAPARIN SODIUM 30 MG/0.3 ML SYRINGE SQ SCH (09:07)
[2016-08-15] MEDS: CHOLECALCIFEROL (VIT D3) 5000 UNIT CAP PO SCH (09:08)
[2016-08-15] MEDS: ACETAMINOPHEN/HYDROcodone 325 MG/7.5 MG TAB PO PRN (09:11)
--- NOTE | 2016-08-15 13:25 | HHI.PR ---
Subjective Remarks Patient in the chair. Says pain is controlled by meds. No fever or chills. No n/ v/d/c. He is more awake and alert. Objective Vitals Vital Signs Date Time Temp Pulse Resp B/P Pulse Ox O2 Delivery O2 Flow Rate FiO2 08/15/16 12:00 96.0 99 18 99/60 97 08/15/16 09:25 98 21 08/15/16 08:00 97.5 94 18 132/61 98 08/15/16 04:00 96.8 86 17 98/70 95 08/14/16 23:52 96.2 78 16 110/67 98 08/14/16 19:00 95.8 82 17 125/61 97 08/14/16 18:29 97 Nasal Cannula 1.00 08/14/16 16:00 98.4 74 16 101/63 97 08/14/16 14:12 94 Nasal Cannula 1.00 I/O 08/14/16 08/14/16 08/14/16 08/15/16 08/15/16 08/15/16 07:00 15:00 23:00 07:00 15:00 23:00 Intake Total 0 ml 1440 ml 480 ml Output Total 990 ml 290 ml 305 ml Balance 0 ml 450 ml 190 ml -305 ml Intake Oral 0 ml 240 ml 480 ml Other 1200 ml Output Urine Total 840 ml 250 ml 300 ml Drainage Total 0 ml 40 ml 5 ml Estimated Blood Loss 150 ml # Voids 2 # Bowel Movements 0 0 0 Result Diagram: 08/15/16 0544 08/13/16 1519 Imaging Last Impressions Hip and Pelvis X-Ray 08/14/16 1120 Signed Impressions: Service Date/Time: Sunday, August 14, 2016 11:57 - CONCLUSION: Successful placement of a bipolar hip prosthesis on the left. Oscar Castillo MD Femur X-Ray 08/13/16 0000 Signed Impressions: Service Date/Time: August 15:50 - CONCLUSION: Impacted left femoral neck fracture. Cecil Rosa MD Objective Remarks GENERAL: Pleasant elderly male, well-nourished, well-developed patient, in no apparent distress. SKIN: No rashes, ecchymoses or lesions. Warm and dry. HEENT: Atraumatic. Normocephalic. Pupils equal round and reactive. Extraocular motions intact. No scleral icterus. No injection or drainage. Nose without bleeding. Airway patent. NECK: Trachea midline. Supple. CARDIOVASCULAR: Regular rate and rhythm. Holosystolic murmur noted. RESPIRATORY: Clear to auscultation. Breath sounds equal bilaterally. No wheezes , rales, or rhonchi. GASTROINTESTINAL: Abdomen soft, non-tender, nondistended. No guarding. MUSCULOSKELETAL: Left hip dressing c/d/i. Extremities without clubbing, cyanosis , or edema. No joint tenderness, effusion, or edema noted. Pain with ROM to left lower extremity. NEUROLOGICAL: Awake and alert. Cranial nerves grossly intact. Motor and sensory grossly within normal limits. Normal speech. Procedures S/P Left hip bipolar nelly-plasty 08/14/[address] Anderson A/P Problem List: (1) Femur fracture, left ICD Code: S72.92XA Status: Acute Assessment and Plan Mr. Tavarez is a 80-year-old male patient with a known history of CAD with CABG x 3 stents in 2016, left carotid stent placement, AAA, GERD and arthritis who is presently on hospice at home x 6 months presented to the ED post fall with left hip pain. Impacted left femoral neck fracture, acute Hip/pelvis, and femur x-ray reviewed showing impacted left femoral neck fracture. Orthopedic surgeons consulted. S/P Left hip bipolar nelly-plasty 08/14/[address] Anderson Pain meds per pain scale. Bowel regimen. Hypertension suspect secondary to left hip pain, BP into a lower side now. Monitor BP. Monitor. PRN clonidine 0.1 mg PO Q6hr PRN systolic > 180. Coronary artery disease, chronic On daily aspirin 325 mg PO daily. Last taken this am. Hold daily aspirin for surgery and restart when ok by surgeon Anemia of chronic disease: Hemoglobin 11.0/Hematocrit 34.2 on presentation. Recheck CBC in am. Other chronic medical problems include arthritis and GERD and are stable at this time. Resume home medications as indicated. DVT Prophylaxis: SCDs. Discussed with the patient, nurse Problem Qualifiers (1) Femur fracture, left: Qualified Code: S72.042A - Closed displaced basicervical fracture of left femur , initial encounter Karis Smith MD Aug 15, 2016 13:25
--- NOTE | 2016-08-15 13:29 | HHI.DS ---
Discharge Summary Admission Date Aug 13, 2016 at 17:21 Discharge Date: Aug 16, 2016 Admitting Diagnosis left femoral neck surgery (1) Femur fracture, left ICD Code: S72.92XA Procedures S/P Left hip bipolar nelly-plasty 08/14/[address] Anderson Brief History - From Admission Mr. Tavarez is a 80-year-old male patient with a known history of CAD with CABG x 3 stents in 2016, left carotid stent placement, AAA, GERD and arthritis who is presently on hospice at home x 6 months who presented to the ED post fall with left hip pain. Patient seen and examined, significant other at bedside. He states that while using his rolling walker at home he turned the corner and tripped over his own feet. Patient denies any LOC, hitting his head, dizziness or headache. Denies any associated numbness, tingling, or decreased sensation to left lower extremity. Denies any recent fever, chills, cough, shortness of breath, chest pain, palpitations, abdominal pain, n/v, or dysuria. At this time patient has decided if surgery is indicated he wishes to proceed with surgery. Awaiting orthopedic consult and recommendations. CBC/BMP: 08/15/16 0544 08/13/16 1519 Significant Findings Laboratory Tests Test 08/13/16 08/14/16 08/15/16 15:19 06:27 05:44 Red Blood Count 3.69 MIL/MM3 3.91 MIL/MM3 (4.50-5.90) (4.50-5.90) Hemoglobin 11.0 GM/DL 12.2 GM/DL 10.4 GM/DL (13.0-17.0) (13.0-17.0) (13.0-17.0) Hematocrit 34.2 % 35.6 % 30.5 % (39.0-51.0) (39.0-51.0) (39.0-51.0) Platelet Count 116 TH/MM3 105 TH/MM3 (150-450) (150-450) Neutrophils (%) (Auto) 72.1 % (16.0-70.0) Eosinophils (%) (Auto) 5.2 % (0.0-4.0) 5.8 % (0.0-4.0) Blood Urea Nitrogen 21 MG/DL (7-18) Estimat Glomerular Filtration 56 ML/MIN (>89) Rate Monocytes (%) (Auto) 8.4 % (0.0-8.0) Eosinophils # (Auto) 0.5 TH/MM3 (0-0.4) Imaging Last Impressions Hip and Pelvis X-Ray 08/14/16 1120 Signed Impressions: Service Date/Time: Sunday, August 14, 2016 11:57 - CONCLUSION: Successful placement of a bipolar hip prosthesis on the left. Oscar Castillo MD Femur X-Ray 08/13/16 0000 Signed Impressions: Service Date/Time: August 15:50 - CONCLUSION: Impacted left femoral neck fracture. Cecil Rosa MD PE at Discharge GENERAL: Pleasant elderly male, well-nourished, well-developed patient, in no apparent distress. SKIN: No rashes, ecchymoses or lesions. Warm and dry. HEENT: Atraumatic. Normocephalic. Pupils equal round and reactive. Extraocular motions intact. No scleral icterus. No injection or drainage. Nose without bleeding. Airway patent. NECK: Trachea midline. Supple. CARDIOVASCULAR: Regular rate and rhythm. Holosystolic murmur noted. RESPIRATORY: Clear to auscultation. Breath sounds equal bilaterally. No wheezes , rales, or rhonchi. GASTROINTESTINAL: Abdomen soft, non-tender, nondistended. No guarding. MUSCULOSKELETAL: Left hip dressing c/d/i. Extremities without clubbing, cyanosis , or edema. No joint tenderness, effusion, or edema noted. Pain with ROM to left lower extremity. NEUROLOGICAL: Awake and alert. Cranial nerves grossly intact. Motor and sensory grossly within normal limits. Normal speech. Hospital Course Mr. Tavarez is a 80-year-old male patient with a known history of CAD with CABG x 3 stents in 2016, left carotid stent placement, AAA, GERD and arthritis who is presently on hospice at home x 6 months presented to the ED post fall with left hip pain. Impacted left femoral neck fracture, acute Hip/pelvis, and femur x-ray reviewed showing impacted left femoral neck fracture. Orthopedic surgeons consulted. S/P Left hip bipolar nelly-plasty 08/14/[address] Anderson Pain meds per pain scale. Bowel regimen. Constipation: laxatives/stool softeners. Hypertension suspect secondary to left hip pain, BP into a lower side now. Monitor BP. Monitor. PRN clonidine 0.1 mg PO Q6hr PRN systolic > 180. Coronary artery disease, chronic On daily aspirin 325 mg PO daily. Last taken this am. Held daily aspirin for surgery and restart when ok by surgeon Anemia of chronic disease: Hemoglobin 11.0/Hematocrit 34.2 on presentation. Recheck CBC in am. Other chronic medical problems include arthritis and GERD and are stable at this time. Resume home medications as indicated. DVT Prophylaxis: SCDs. Discussed with the patient, nurse, at bedside, case management Cleared for DC by surgeon to follow up as OP. Patient appealed DC. Patient DC to SNF in stable condition, to follow up as OP with PCP and consultants. Pt Condition on Discharge: Stable Discharge Disposition: Discharge to SNF Discharge Time: > 30 minutes Discharge Instructions DIET: Follow Instructions for: Heart Healthy Diet, Diabetic Diet Activities you can perform: Regular-No Restrictions Follow up Referrals: Orthopedics - 08/28/16 @ [facility] with Neri Anderson MD PCP Follow-up - 3-5 Days New Medications: Hydrocodone-Acetaminophen ([place]) 7.5-325 mg Tab 1 TAB PO Q4H PRN PAIN #50 Ref 0 TAB Rivaroxaban (Xarelto) 10 Mg Tab 10 MG PO DAILY Blood Clot Prevention #21 Ref 0 TAB Walker/Adult/Folding (Walker/Adult/Folding) 1 Mis Mis 1 EA .ROUTE DIRECTED #1 Ref 0 EA Continued Medications: Aspirin (Aspirin) 325 Mg Tab 325 MG PO DAILY Ref 0 TAB Atorvastatin (Atorvastatin) 40 Mg Tab 40 MG PO HS Cholesterol Management Ref 0 TAB Calcium Carbonate (Calcium) 600 Mg Tab 600 MG PO DAILY Citalopram (Citalopram) 10 Mg Tab 10 MG PO DAILY Control Depression #30 Ref 0 TAB Coenzyme T58-Zifn Oil-Vitamin (Co-Q 10 [place]-3 Fish Oil) 1 Cap 400 MG PO DAILY Multiple Vitamins W/ Minerals (Centrum Adults) 1 Tab 500 MG PO DAILY Nutritional Supplement Ref 0 TAB Sennosides (Senna Laxative) 8.6 Mg Tab 1-2 TAB BID PRN CONSTIPATION Discontinued Medications: Diazepam (Diazepam) 5 Mg Tab 5 MG PO Q8HR PRN ANXIETY Ref 0 TAB Morphine ER (Morphine ER) 15 Mg Tab 15 MG PO Q8HR PRN PAIN SCALE 1 TO 10 Ref 0 TAB Morphine ER (Morphine ER) 15 Mg Tab 15 MG PO Q8HR Pain Management Ref 0 TAB Karis Smith MD Aug 15, 2016 13:29
[2016-08-16] VITALS (9 sets, daily range): BP systolic 129–153; BP diastolic 63–88; PULSE 83–111; RESP 18–24; TEMP 96.1–99.3; O2SAT 93–98
[2016-08-16] MEDS: ACETAMINOPHEN/HYDROcodone 325 MG/7.5 MG TAB PO PRN (06:06)
--- NOTE | 2016-08-16 08:38 | PD.ORT.PN ---
Subjective Subjective Remarks pt awake, confused history of dementia Objective Vitals Vital Signs Date Time Temp Pulse Resp B/P Pulse Ox O2 Delivery O2 Flow Rate FiO2 08/16/16 08:00 96.1 102 18 129/72 94 08/16/16 04:00 97.3 103 18 136/84 96 08/16/16 00:00 96.7 111 24 153/88 97 08/15/16 21:00 111 08/15/16 20:00 97.4 112 20 139/79 96 08/15/16 17:05 104 08/15/16 16:00 96.2 105 18 134/73 95 08/15/16 12:00 96.0 99 18 99/60 97 08/15/16 09:25 98 21 I/O 08/15/16 08/15/16 08/15/16 08/16/16 08/16/16 08/16/16 07:00 15:00 23:00 07:00 15:00 23:00 Intake Total 1260 ml 240 ml Output Total 305 ml 20 ml 300 ml Balance -305 ml -20 ml 960 ml 240 ml Intake Oral 1260 ml 240 ml Output Urine Total 300 ml 300 ml Drainage Total 5 ml 20 ml # Voids 2 2 # Bowel Movements 0 0 0 Result Diagram: 08/15/16 0544 08/13/16 1519 Imaging Last 24 hours Impressions Hip and Pelvis X-Ray 08/14/16 1120 Signed Impressions: Service Date/Time: Sunday, August 14, 2016 11:57 - CONCLUSION: Successful placement of a bipolar hip prosthesis on the left. Oscar Castillo MD Objective Remarks seen by Dr. Balbir Encarnacion LLE: pain with motion of hip. nvi. neg flavia. Assessment & Plan Assessment and Plan 1) Left Femoral Neck Fx 2) POD #2 s/p bipolar 3) WBAT with posterior hip precautions 4) knee brace while in bed 5) daily dressing changes 6) DVT prophylaxis with lovenox and transition to Xarelto at discharge 7) discharge to SNF today, orthopedically stable 8) patient has hx of dementia, hospice patient, hx of testicular cancer, has been on morphine at home 9) follow up with [facility] or [facility] in 2 weeks Leana Carter Aug 16, 2016 08:38
[2016-08-16] MEDS: CHOLECALCIFEROL (VIT D3) 5000 UNIT CAP PO SCH (09:00)
[2016-08-16] MEDS: SODIUM CHLORIDE 0.9% FLUSH 5 ML FLUSH IVF SCH ×2 (09:00→19:44)
[2016-08-16] MEDS: ENOXAPARIN SODIUM 30 MG/0.3 ML SYRINGE SQ SCH (09:13)
[2016-08-16] MEDS: ACETAMINOPHEN 325 MG TAB PO PRN ×2 (09:15→20:11)
--- NOTE | 2016-08-16 09:19 | HHI.PR ---
Subjective Remarks In the chair, not eating much . Denies chest pain, sob, n/v/d/c. Pain at the right hip is controlled by meds. Says he will go to SNF . Objective Vitals Vital Signs Date Time Temp Pulse Resp B/P Pulse Ox O2 Delivery O2 Flow Rate FiO2 08/16/16 08:00 96.1 102 18 129/72 94 08/16/16 04:00 97.3 103 18 136/84 96 08/16/16 00:00 96.7 111 24 153/88 97 08/15/16 21:00 111 08/15/16 20:00 97.4 112 20 139/79 96 08/15/16 17:05 104 08/15/16 16:00 96.2 105 18 134/73 95 08/15/16 12:00 96.0 99 18 99/60 97 08/15/16 09:25 98 21 I/O 08/15/16 08/15/16 08/15/16 08/16/16 08/16/16 08/16/16 06:59 14:59 22:59 06:59 14:59 22:59 Intake Total 1260 ml 240 ml Output Total 305 ml 20 ml 300 ml Balance -305 ml -20 ml 960 ml 240 ml Intake Oral 1260 ml 240 ml Output Urine Total 300 ml 300 ml Drainage Total 5 ml 20 ml # Voids 2 2 # Bowel Movements 0 0 0 Result Diagram: 08/15/16 0544 08/13/16 1519 Imaging Last Impressions Hip and Pelvis X-Ray 08/14/16 1120 Signed Impressions: Service Date/Time: Sunday, August 14, 2016 11:57 - CONCLUSION: Successful placement of a bipolar hip prosthesis on the left. Oscar Castillo MD Femur X-Ray 08/13/16 0000 Signed Impressions: Service Date/Time: August 15:50 - CONCLUSION: Impacted left femoral neck fracture. Cecil Rosa MD Objective Remarks GENERAL: Pleasant elderly male, well-nourished, well-developed patient, in no apparent distress. SKIN: No rashes, ecchymoses or lesions. Warm and dry. HEENT: Atraumatic. Normocephalic. Pupils equal round and reactive. Extraocular motions intact. No scleral icterus. No injection or drainage. Nose without bleeding. Airway patent. NECK: Trachea midline. Supple. CARDIOVASCULAR: Regular rate and rhythm. Holosystolic murmur noted. RESPIRATORY: Clear to auscultation. Breath sounds equal bilaterally. No wheezes , rales, or rhonchi. GASTROINTESTINAL: Abdomen soft, non-tender, nondistended. No guarding. MUSCULOSKELETAL: Left hip dressing c/d/i. Extremities without clubbing, cyanosis , or edema. No joint tenderness, effusion, or edema noted. Pain with ROM to left lower extremity. NEUROLOGICAL: Awake and alert. Cranial nerves grossly intact. Motor and sensory grossly within normal limits. Normal speech. Procedures S/P Left hip bipolar nelly-plasty 08/14/[address] Anderson A/P Problem List: (1) Femur fracture, left ICD Code: S72.92XA Status: Acute Assessment and Plan Mr. Tavarez is a 80-year-old male patient with a known history of CAD with CABG x 3 stents in 2016, left carotid stent placement, AAA, GERD and arthritis who is presently on hospice at home x 6 months presented to the ED post fall with left hip pain. Impacted left femoral neck fracture, acute Hip/pelvis, and femur x-ray reviewed showing impacted left femoral neck fracture. Orthopedic surgeons consulted. S/P Left hip bipolar nelly-plasty 08/14/[address] Anderson Pain meds per pain scale. Bowel regimen. Hypertension suspect secondary to left hip pain, BP into a lower side now. Monitor BP. Monitor. PRN clonidine 0.1 mg PO Q6hr PRN systolic > 180. Coronary artery disease, chronic On daily aspirin 325 mg PO daily. Last taken this am. Held daily aspirin for surgery and restart when ok by surgeon Anemia of chronic disease: Hemoglobin 11.0/Hematocrit 34.2 on presentation. Recheck CBC in am. Other chronic medical problems include arthritis and GERD and are stable at this time. Resume home medications as indicated. DVT Prophylaxis: SCDs. Discussed with the patient, nurse Problem Qualifiers (1) Femur fracture, left: Qualified Code: S72.042A - Closed displaced basicervical fracture of left femur , initial encounter Karis Smith MD Aug 16, 2016 09:19
[2016-08-16] MEDS: MAGNESIUM HYDROXIDE SUSP 30 ML CUP PO PRN (20:12)
[2016-08-17] VITALS (9 sets, daily range): BP systolic 125–180; BP diastolic 68–85; PULSE 84–97; RESP 16–20; TEMP 96–97.6; O2SAT 95–98
--- NOTE | 2016-08-17 06:29 | PD.ORT.PN ---
Subjective Subjective Remarks POD 3 s/p left hip hemiarthroplasty doing well. states pain controlled. reports out of bed with therapy Objective Vitals Vital Signs Date Time Temp Pulse Resp B/P Pulse Ox O2 Delivery O2 Flow Rate FiO2 08/17/16 04:00 96.0 88 18 140/75 97 08/17/16 00:00 97.6 94 20 139/71 97 08/16/16 20:31 111 08/16/16 20:00 97.0 97 22 147/84 97 08/16/16 16:00 99.3 90 18 138/63 98 08/16/16 15:12 106 08/16/16 12:00 96.6 83 18 130/63 98 08/16/16 10:05 93 21 08/16/16 08:00 96.1 102 18 129/72 94 I/O 08/16/16 08/16/16 08/16/16 08/17/16 08/17/16 08/17/16 07:00 15:00 23:00 07:00 15:00 23:00 Intake Total 240 ml 1140 ml 240 ml Output Total 600 ml 425 ml Balance 240 ml 540 ml -185 ml Intake Oral 240 ml 1140 ml 240 ml Output Urine Total 600 ml 425 ml # Voids 2 2 # Bowel Movements 0 0 Result Diagram: 08/15/16 0544 08/13/16 1519 Imaging Last 24 hours Impressions Hip and Pelvis X-Ray 08/14/16 1120 Signed Impressions: Service Date/Time: Sunday, August 14, 2016 11:57 - CONCLUSION: Successful placement of a bipolar hip prosthesis on the left. Oscar Castillo MD Objective Remarks LLE: pain with motion of hip. nvi. neg flavia. + knee brace Assessment & Plan Assessment and Plan 1) Left Femoral Neck Fx - POD #3 s/p bipolar WBAT with posterior hip precautions knee brace while in bed daily dressing changes DVT prophylaxis with lovenox and transition to Xarelto at discharge discharge to SNF today, orthopedically stable patient has hx of dementia, hospice patient, hx of testicular cancer, has been on morphine at home follow up with [facility] or [facility] in 2 weeks Toni Mercer Aug 17, 2016 06:28
[2016-08-17] MEDS: ACETAMINOPHEN 325 MG TAB PO PRN ×3 (08:50→19:55)
[2016-08-17] MEDS: CHOLECALCIFEROL (VIT D3) 5000 UNIT CAP PO SCH (08:50)
[2016-08-17] MEDS: ENOXAPARIN SODIUM 30 MG/0.3 ML SYRINGE SQ SCH (08:50)
[2016-08-17] MEDS: SODIUM CHLORIDE 0.9% FLUSH 5 ML FLUSH IVF SCH ×2 (08:56→19:59)
--- NOTE | 2016-08-17 11:00 | HHI.PR ---
Subjective Remarks In bed. at bedside. patient says she can't move without help. He is walking some with the walker. Says he felt dizzy. Patient is also taking pain meds. He also complaints of constipation. No n/v/d/c. Says he ate breakfast. Not much appetite. No chest pain or sob. No palpitations. Objective Vitals Vital Signs Date Time Temp Pulse Resp B/P Pulse Ox O2 Delivery O2 Flow Rate FiO2 08/17/16 10:32 96 08/17/16 08:08 96.9 97 16 180/85 95 08/17/16 04:00 96.0 88 18 140/75 97 08/17/16 00:00 97.6 94 20 139/71 97 08/16/16 20:31 111 08/16/16 20:00 97.0 97 22 147/84 97 08/16/16 16:00 99.3 90 18 138/63 98 08/16/16 15:12 106 08/16/16 12:00 96.6 83 18 130/63 98 I/O 08/16/16 08/16/16 08/16/16 08/17/16 08/17/16 08/17/16 07:00 15:00 23:00 07:00 15:00 23:00 Intake Total 240 ml 1140 ml 240 ml Output Total 600 ml 425 ml Balance 240 ml 540 ml -185 ml Intake Oral 240 ml 1140 ml 240 ml Output Urine Total 600 ml 425 ml # Voids 2 2 # Bowel Movements 0 0 Result Diagram: 08/15/16 0544 08/13/16 1519 Imaging Last Impressions Hip and Pelvis X-Ray 08/14/16 1120 Signed Impressions: Service Date/Time: Sunday, August 14, 2016 11:57 - CONCLUSION: Successful placement of a bipolar hip prosthesis on the left. Oscar Castillo MD Femur X-Ray 08/13/16 0000 Signed Impressions: Service Date/Time: August 15:50 - CONCLUSION: Impacted left femoral neck fracture. Cecil Rosa MD Objective Remarks GENERAL: Pleasant elderly male, well-nourished, well-developed patient, in no apparent distress. SKIN: No rashes, ecchymoses or lesions. Warm and dry. HEENT: Atraumatic. Normocephalic. Pupils equal round and reactive. Extraocular motions intact. No scleral icterus. No injection or drainage. Nose without bleeding. Airway patent. NECK: Trachea midline. Supple. CARDIOVASCULAR: Regular rate and rhythm. Holosystolic murmur noted. RESPIRATORY: Clear to auscultation. Breath sounds equal bilaterally. No wheezes , rales, or rhonchi. GASTROINTESTINAL: Abdomen soft, non-tender, nondistended. No guarding. MUSCULOSKELETAL: Left hip dressing c/d/i. Extremities without clubbing, cyanosis , or edema. No joint tenderness, effusion, or edema noted. Pain with ROM to left lower extremity. NEUROLOGICAL: Awake and alert. Cranial nerves grossly intact. Motor and sensory grossly within normal limits. Normal speech. Procedures S/P Left hip bipolar nelly-plasty 08/14/[address] Anderson A/P Problem List: (1) Femur fracture, left ICD Code: S72.92XA Status: Acute Assessment and Plan Mr. Tavarez is a 80-year-old male patient with a known history of CAD with CABG x 3 stents in 2016, left carotid stent placement, AAA, GERD and arthritis who is presently on hospice at home x 6 months presented to the ED post fall with left hip pain. Impacted left femoral neck fracture, acute Hip/pelvis, and femur x-ray reviewed showing impacted left femoral neck fracture. Orthopedic surgeons consulted. S/P Left hip bipolar nelly-plasty 08/14/[address] Anderson Pain meds per pain scale. Bowel regimen. Constipation: laxatives/stool softeners. Hypertension suspect secondary to left hip pain, BP into a lower side now. Monitor BP. Monitor. PRN clonidine 0.1 mg PO Q6hr PRN systolic > 180. Coronary artery disease, chronic On daily aspirin 325 mg PO daily. Last taken this am. Held daily aspirin for surgery and restart when ok by surgeon Anemia of chronic disease: Hemoglobin 11.0/Hematocrit 34.2 on presentation. Recheck CBC in am. Other chronic medical problems include arthritis and GERD and are stable at this time. Resume home medications as indicated. DVT Prophylaxis: SCDs. Discussed with the patient, nurse, at bedside, case management Cleared for DC by surgeon to follow up as OP. patient to follow up as OP with PCP and consultants. Problem Qualifiers (1) Femur fracture, left: Qualified Code: S72.042A - Closed displaced basicervical fracture of left femur , initial encounter Karis Smith MD Aug 17, 2016 11:00
[2016-08-17] MEDS: MAGNESIUM HYDROXIDE SUSP 30 ML CUP PO PRN (11:05)
[2016-08-17] MEDS ORDERED: LACTULOSE SYRUP 20 GM/30 ML CUP PO ONE (13:00)
[2016-08-17] MEDS: DOCUSATE SODIUM 50 MG/SENNA 8.6 MG TAB PO SCH ×2 (13:58→19:56)
[2016-08-17] MEDS ORDERED: LACTULOSE SYRUP 20 GM/30 ML CUP PO PRN (18:00)
[2016-08-17] MEDS ORDERED: BISACODYL 10 MG SUPP RECTAL PRN (18:15)
[2016-08-17] MEDS: BISACODYL EC 5 MG TABEC PO SCH (19:56)
[2016-08-18] VITALS (7 sets, daily range): BP systolic 99–168; BP diastolic 59–81; PULSE 89–109; RESP 16–20; TEMP 96.5–98; O2SAT 96–99
[2016-08-18] MEDS: ACETAMINOPHEN 325 MG TAB PO PRN ×2 (05:28→12:15)
--- NOTE | 2016-08-18 06:51 | PD.ORT.PN ---
Subjective Subjective Remarks Resting comfortably with no new complaints Objective Vitals Vital Signs Date Time Temp Pulse Resp B/P Pulse Ox O2 Delivery O2 Flow Rate FiO2 08/18/16 03:55 96.5 90 18 121/74 97 08/18/16 02:17 89 08/18/16 02:09 91 126/72 08/18/16 00:30 96.7 92 20 168/80 97 08/17/16 20:30 86 08/17/16 20:27 97.6 91 19 148/74 98 08/17/16 16:00 97.6 85 18 125/72 96 08/17/16 11:07 96.7 84 16 143/68 97 08/17/16 11:02 86 08/17/16 10:32 96 08/17/16 08:08 96.9 97 16 180/85 95 I/O 08/17/16 08/17/16 08/17/16 08/18/16 08/18/16 08/18/16 07:00 15:00 23:00 07:00 15:00 23:00 Intake Total 240 ml 660 ml 480 ml Output Total 425 ml 375 ml 250 ml Balance -185 ml 285 ml 230 ml Intake Oral 240 ml 660 ml 480 ml Output Urine Total 425 ml 375 ml 250 ml # Voids 4 # Bowel Movements 0 Result Diagram: 08/15/16 0544 Imaging Last 24 hours Impressions Hip and Pelvis X-Ray 08/14/16 1120 Signed Impressions: Service Date/Time: Sunday, August 14, 2016 11:57 - CONCLUSION: Successful placement of a bipolar hip prosthesis on the left. Oscar Castillo MD Objective Remarks Off lower extremity: Clean dry dressings and place. Knee immobilizer present. Distally intact sensation with strong dorsal flexion plantar flexion of foot Assessment & Plan Assessment and Plan 1) Left Femoral Neck Fx - POD #4 s/p bipolar WBAT with posterior hip precautions knee brace while in bed daily dressing changes DVT prophylaxis with lovenox and transition to Xarelto at discharge discharge to SNF today, orthopedically stable patient has hx of dementia, hospice patient, hx of testicular cancer, has been on morphine at home follow up with [facility] or [facility] in 2 weeks Rahat Hsu Jr. Aug 18, 2016 06:51
[2016-08-18] MEDS: SODIUM CHLORIDE 0.9% FLUSH 5 ML FLUSH IVF SCH (09:00)
[2016-08-18] MEDS: DOCUSATE SODIUM 50 MG/SENNA 8.6 MG TAB PO SCH (09:00)
[2016-08-18] MEDS: BISACODYL EC 5 MG TABEC PO SCH (09:00)
[2016-08-18] MEDS: ENOXAPARIN SODIUM 30 MG/0.3 ML SYRINGE SQ SCH (09:38)
[2016-08-18] MEDS: CHOLECALCIFEROL (VIT D3) 5000 UNIT CAP PO SCH (09:38)
--- NOTE | 2016-08-18 12:26 | HHI.PR ---
Subjective Remarks Had a BM. Feels better. No n/v/d/c. No cp or sob. Objective Vitals Vital Signs Date Time Temp Pulse Resp B/P Pulse Ox O2 Delivery O2 Flow Rate FiO2 08/18/16 08:06 97.9 109 18 99/59 96 08/18/16 03:55 96.5 90 18 121/74 97 08/18/16 02:17 89 08/18/16 02:09 91 126/72 08/18/16 00:30 96.7 92 20 168/80 97 08/17/16 20:30 86 08/17/16 20:27 97.6 91 19 148/74 98 08/17/16 16:00 97.6 85 18 125/72 96 I/O 08/17/16 08/17/16 08/17/16 08/18/16 08/18/16 08/18/16 06:59 14:59 22:59 06:59 14:59 22:59 Intake Total 240 ml 1020 ml 480 ml Output Total 425 ml 875 ml 250 ml Balance -185 ml 145 ml 230 ml Intake Oral 240 ml 1020 ml 480 ml Output Urine Total 425 ml 875 ml 250 ml # Voids 4 # Bowel Movements 1 0 Result Diagram: 08/15/16 0544 Imaging Last Impressions Hip and Pelvis X-Ray 08/14/16 1120 Signed Impressions: Service Date/Time: Sunday, August 14, 2016 11:57 - CONCLUSION: Successful placement of a bipolar hip prosthesis on the left. Oscar Castillo MD Femur X-Ray 08/13/16 0000 Signed Impressions: Service Date/Time: August 15:50 - CONCLUSION: Impacted left femoral neck fracture. Cecil Rosa MD Objective Remarks GENERAL: Pleasant elderly male, well-nourished, well-developed patient, in no apparent distress. SKIN: No rashes, ecchymoses or lesions. Warm and dry. HEENT: Atraumatic. Normocephalic. Pupils equal round and reactive. Extraocular motions intact. No scleral icterus. No injection or drainage. Nose without bleeding. Airway patent. NECK: Trachea midline. Supple. CARDIOVASCULAR: Regular rate and rhythm. Holosystolic murmur noted. RESPIRATORY: Clear to auscultation. Breath sounds equal bilaterally. No wheezes , rales, or rhonchi. GASTROINTESTINAL: Abdomen soft, non-tender, nondistended. No guarding. MUSCULOSKELETAL: Left hip dressing c/d/i. Extremities without clubbing, cyanosis , or edema. No joint tenderness, effusion, or edema noted. Pain with ROM to left lower extremity. NEUROLOGICAL: Awake and alert. Cranial nerves grossly intact. Motor and sensory grossly within normal limits. Normal speech. Procedures S/P Left hip bipolar nelly-plasty 08/14/[address] Anderson A/P Problem List: (1) Femur fracture, left ICD Code: S72.92XA Status: Acute Assessment and Plan Mr. Tavarez is a 80-year-old male patient with a known history of CAD with CABG x 3 stents in 2016, left carotid stent placement, AAA, GERD and arthritis who is presently on hospice at home x 6 months presented to the ED post fall with left hip pain. Impacted left femoral neck fracture, acute Hip/pelvis, and femur x-ray reviewed showing impacted left femoral neck fracture. Orthopedic surgeons consulted. S/P Left hip bipolar nelly-plasty 08/14/[address] Anderson Pain meds per pain scale. Bowel regimen. Constipation: laxatives/stool softeners. Hypertension suspect secondary to left hip pain, BP into a lower side now. Monitor BP. Monitor. PRN clonidine 0.1 mg PO Q6hr PRN systolic > 180. Coronary artery disease, chronic On daily aspirin 325 mg PO daily. Last taken this am. Held daily aspirin for surgery and restart when ok by surgeon Anemia of chronic disease: Hemoglobin 11.0/Hematocrit 34.2 on presentation. Recheck CBC in am. Other chronic medical problems include arthritis and GERD and are stable at this time. Resume home medications as indicated. DVT Prophylaxis: SCDs. Discussed with the patient, nurse, at bedside, case management Cleared for DC by surgeon to follow up as OP. patient to follow up as OP with PCP and consultants. Problem Qualifiers (1) Femur fracture, left: Qualified Code: S72.042A - Closed displaced basicervical fracture of left femur , initial encounter Karis Smith MD Aug 18, 2016 12:26
== END 2016-08-18 17:31 | DRG 470 ==
LOC: NEPC 14:22 → NEDA 17:20 → OBSVTOIN 17:21 → N06A 19:01
PROVIDERS: ADMIT Hospitalist; ATTEND Hospitalist
PROC: 0SRS0JA Replacement of Left Hip Joint, Femoral Surface with Synthetic Substitute, Uncemented, Open Approach (ICD-10-PCS; principal; 2016-08-14 10:06)
DX: S72.002A Fracture of unspecified part of neck of left femur, initial encounter for closed fracture (principal); F03.90 Unspecified dementia, unspecified severity, without behavioral disturbance, psychotic disturbance, mood disturbance, and anxiety; D63.8 Anemia in other chronic diseases classified elsewhere; I10 Essential (primary) hypertension; I25.10 Atherosclerotic heart disease of native coronary artery without angina pectoris; I71.4 Abdominal aortic aneurysm, without rupture; M21.379 Foot drop, unspecified foot; W01.0XXA Fall on same level from slipping, tripping and stumbling without subsequent striking against object, initial encounter; Y93.01 Activity, walking, marching and hiking; Y92.009 Unspecified place in unspecified non-institutional (private) residence as the place of occurrence of the external cause; Y99.9 Unspecified external cause status; Z95.1 Presence of aortocoronary bypass graft; M19.90 Unspecified osteoarthritis, unspecified site; K21.9 Gastro-esophageal reflux disease without esophagitis; Z85.47 Personal history of malignant neoplasm of testis; Z87.891 Personal history of nicotine dependence; M81.0 Age-related osteoporosis without current pathological fracture; Z51.5 Encounter for palliative care; Z95.5 Presence of coronary angioplasty implant and graft; K59.00 Constipation, unspecified; F12.90 Cannabis use, unspecified, uncomplicated; R42 Dizziness and giddiness; Z88.5 Allergy status to narcotic agent; Z88.0 Allergy status to penicillin
CPT/HCPCS: 73502; 73552; 76937; 80048; 82306; 85014; 85018; 85025; 85610; 85730; 86850; 86900; 86901; 93005; C1776; J1100; J1580; J1650; J2270; J2370; J2405; J3010; J3370; J7050; J7120; L1830